=== PATIENT | male | born 1965 | race Caucasian/White ===

== ENCOUNTER 2019-06-18 13:01 | Emergency (ER) | payer OTHER ==
[~2019-06-18] VITALS: Ht 185.4 cm; Wt 91.4 kg
[2019-06-18] MEDS ORDERED: ASPIR 8181 MG PO (14:17)
[2019-06-18] MEDS ORDERED: FISH OIL 1,001000 M2 PO (14:17)
[2019-06-18 14:48] LABS: ABSOLUTE NEUTROPHILS 7.4 thou/uL (1.4-8.2); BASOPHILS 0.6 % (0.0-2.0); EOSINOPHILS 0.4 % (0.0-3.0); HEMOGLOBIN 17.4 gm/dL (14.0-18.0); LYMPHOCYTES 32.7 % (24.0-44.0); MCH 31.2 pg (26.0-34.0); MCHC 34.2 g/dL (28.0-37.0); MCV 91.4 fL (80.0-100.0); MONOCYTES 6.6 % (1.0-8.0); PLATELET COUNT 155 thou/uL (150-400); POLYS 59.7 % (36.0-66.0); RBC 5.58 mil/uL (4.50-6.00); RDW 13.6 % (10.5-14.5); WBC 12.4 thou/uL (4.0-11.0)
[2019-06-18 14:52] LABS: ANION GAP 9 mmol/L (7-16); BUN 11 mg/dL (7-18); CALCIUM 9.4 mg/dL (8.5-10.1); CHLORIDE 104 mmol/L (98-107); CO2 26 mmol/L (21-32); CREATININE 0.8 mg/dL (0.7-1.3); GLUCOSE 95 mg/dL (74-106); POTASSIUM 4.3 mmol/L (3.5-5.1); SODIUM 139 mmol/L (136-145)
[2019-06-18 14:58] LABS: ALBUMIN 4.1 g/dL (3.4-5.0); DIRECT BILIRUBIN < 0.1 mg/dL (<0.1-0.3); MAGNESIUM 2.1 mg/dL (1.8-2.4); SGOT 28 U/L (15-37); SGPT 56 U/L (30-65); TOTAL BILIRUBIN 0.3 mg/dL (<0.1-1.0); TOTAL PROTEIN 7.9 g/dL (6.4-8.2)
[2019-06-18 15:56] LABS: URINE BILIRUBIN NEGATIVE (Negative); URINE BLOOD NEGATIVE (Negative); URINE CLARITY CLEAR; URINE COLOR YELLOW; URINE GLUCOSE-RANDOM* NEGATIVE (Negative); URINE KETONES NEGATIVE (Negative); URINE LEUKOCYTES-REFLEX TRACE (Negative); URINE NITRITE-REFLEX NEGATIVE (Negative); URINE PROTEIN (DIPSTICK) NEGATIVE (Negative); URINE SPECIFIC GRAVITY <= 1.005 (1.005-1.035); URINE UROBILINOGEN 0.2 E.U./dl (0.2-1.0)
[2019-06-18 17:44] VITALS: BP 126/79
== END 2019-06-18 17:45 | disposition home or self-care (01) ==
LOC: ER 13:01
PROVIDERS: Emergency Medicine
DX: R53.81 Other malaise (principal); R50.9 Fever, unspecified; E78.5 Hyperlipidemia, unspecified; I11.0 Hypertensive heart disease with heart failure; I50.9 Heart failure, unspecified; F17.210 Nicotine dependence, cigarettes, uncomplicated; Z91.041 Radiographic dye allergy status